=== PATIENT | female | born 1970 | race African-American/Black ===

== ENCOUNTER 2024-07-30 13:56 | Emergency (ER) | payer OTHER ==
[2024-07-30] MEDS ORDERED: Phenytoin Extended Release 100 MG CAP ONE (14:54)
== END 2024-07-30 15:22 | disposition home or self-care (01) ==
LOC: ERS 13:56 → EDSEX 13:56 → EDBD 13:56 → ERS 15:22
DX: R56.9 Unspecified convulsions (principal); R29.700 NIHSS score 0
CPT/HCPCS: 93005; 99284